=== PATIENT | female | born 1960 | race Caucasian/White ===

== ENCOUNTER → 2025-01-25 | Outpatient (CLI) | payer MEDICAID, SELFPAY ==
[2025-01-25 10:52] LABS: Glucose Estimated Average 200 mg/dL (80-131); Hemoglobin A1C 8.6 % Hgb (4.8-6.0)
[2025-01-25 10:56] LABS: B-Type Natriuretic Peptide 21 pg/mL (0-100)
[2025-01-25 11:06] LABS: Albumin, Serum 4.4 gm/dL (3.4-4.8); Anion Gap 7 (7-16); BUN/Creatinine Ratio 16 Ratio (12-20); Blood Urea Nitrogen 13 mg/dL (9-23); Calcium 9.7 mg/dL (8.3-10.6); Calcium (Corrected) 9.7 mg/dL (8.5-10.1); Carbon Dioxide 29.9 mMol/L (20.0-31.0); Cardiac Risk Estimate 2.5 RATIO (3.7-5.6); Chloride 107 mMol/L (98-107); Cholesterol 150 mg/dL (132-200); Creatinine (Component) 0.8 mg/dL (0.6-1.3); Glucose 126 mg/dL (74-106); HDL Cholesterol 61 mg/dL (40-60); LDL Cholesterol,Calculated 67 mg/dL (0-130); Magnesium 2.0 mg/dL (1.6-2.6); Osmolality,Calculated 288 (275-295); Phosphorous 3.6 mg/dL (2.4-5.1); Potassium 4.9 mMol/L (3.4-5.1); Sodium 144 mMol/L (136-145); Triglycerides 109 mg/dL (30-150); Uric Acid 7.5 mg/dL (3.1-7.8); eGFR > 60 See Note
== END | disposition home or self-care (01) ==
LOC: COPL 09:14
PROVIDERS: PCP Physician Assistant; Referring Provider Internal Medicine Cardiovascular Disease; Visit Provider Internal Medicine Cardiovascular Disease
DX: E78.5 Hyperlipidemia, unspecified (principal); E11.9 Type 2 diabetes mellitus without complications; R06.00 Dyspnea, unspecified; R94.31 Abnormal electrocardiogram [ECG] [EKG]; R07.9 Chest pain, unspecified
CPT/HCPCS: 36415; 80048; 80061; 80069; 83036; 83735; 83880; 84550